=== PATIENT | male | born 1975 | race Caucasian/White ===

== ENCOUNTER 2021-05-30 16:08 | Emergency (ER) | payer SELFPAY ==
[~2021-05-30] VITALS: Ht 182 cm; Wt 100.0 kg
[2021-05-30] MEDS ORDERED: ASPIRIN 81 MG CHEW (CHILDREN'S ASA) PO ONE (16:30)
[2021-05-30] MEDS ORDERED: ANTACID SUSP 30 ML UDC (MYLANTA) PO ONE (16:30)
[2021-05-30] MEDS ORDERED: LIDOCAINE 2% VISCOUS 15 ML UDC PO ONE (16:30)
--- NOTE | 2021-05-30 16:38 | ED Chest Pain ---
General Stated Complaint: HIGH BLOOD PRESSURE, CHEST PAIN Source: patient Exam Limitations: no limitations History of Present Illness Date Seen by Provider: May 30, 2021 Time Seen by Provider: 16:15 Initial Comments To ER from [facility] with c/o burning chest pain x3 days with high blood presure. History of hyperlipidemia, hypertension, NIDDM. No coronary history. Currently he is pain free. No associated nausea sob or diaphoresis. The only thing that improves pain is "taking any pill" such as aspirin or ibuprofen (perhaps related to drinking the water?). Nothing brings about or worsens the pain. Timing/Duration: 2-3 days Severity/Quality: moderate Location: central Radiation: no radiation Activities at Onset: none ASA po CREDIT REPRESENTATIVE: No NTG SL CREDIT REPRESENTATIVE: No Associated Symptoms: shortness of breath Allergies and Home Medications Allergies Coded Allergies: No Known Drug Allergies (Unverified , 05/30/21) Home Medications Pantoprazole Sodium 40 Mg Granpkt.dr, 40 MG PO DAILY Prescribed by: VALENTIN SAL on 05/30/211912 Patient Home Medication List Home Medication List Reviewed: Yes Review of Systems Review of Systems Constitutional: see HPI EENTM: No Symptoms Reported Respiratory: No Symptoms Reported Cardiovascular: See HPI, Chest Pain Gastrointestinal: See HPI Genitourinary: No Symptoms Reported Musculoskeletal: no symptoms reported Skin: no symptoms reported Psychiatric/Neurological: No Symptoms Reported Endocrine: No Symptoms Reported Hematologic/Lymphatic: No Symptoms Reported Physical Exam Vital Signs Vital Signs - First Documented 05/30/21 16:51 Temp 36.8 Pulse 56 Resp 16 B/P (MAP) 164/110 (128) Pulse Ox 99 Capillary Refill : Height, Weight, BMI Height: '" Weight: lbs. oz. kg; BMI Method: General Appearance: No Apparent Distress, WD/WN Neck: Full Range of Motion, Normal Inspection Respiratory: No Accessory Muscle Use, No Respiratory Distress Cardiovascular: Regular Rate, Rhythm, Normal Peripheral Pulses Gastrointestinal: Normal Bowel Sounds, Non Tender, Soft Extremity: Normal Capillary Refill, Normal Inspection Neurologic/Psychiatric: Alert, Oriented x3 Skin: Normal Color, Warm/Dry Progress/Results/Core Measures Results/Orders Lab Results Laboratory Tests Test 05/30/21 16:30 05/30/21 18:40 Range/Units White Blood Count 7.0 4.3-11.0 10^3/uL Red Blood Count 4.81 4.30-5.52 10^6/uL Hemoglobin 14.6 13.3-17.7 g/dL Hematocrit 44 40-54 % Mean Corpuscular Volume 91 80-99 fL Mean Corpuscular Hemoglobin 30 25-34 pg Mean Corpuscular Hemoglobin Concent 34 32-36 g/dL Red Cell Distribution Width 13.4 10.0-14.5 % Platelet Count 204 130-400 10^3/uL Mean Platelet Volume 10.6 9.0-12.2 fL Immature Granulocyte % (Auto) 0 % Neutrophils (%) (Auto) 54 42-75 % Lymphocytes (%) (Auto) 34 12-44 % Monocytes (%) (Auto) 9 0-12 % Eosinophils (%) (Auto) 3 0-10 % Basophils (%) (Auto) 1 0-10 % Neutrophils # (Auto) 3.8 1.8-7.8 10^3/uL Lymphocytes # (Auto) 2.4 1.0-4.0 10^3/uL Monocytes # (Auto) 0.6 0.0-1.0 10^3/uL Eosinophils # (Auto) 0.2 0.0-0.3 10^3/uL Basophils # (Auto) 0.0 0.0-0.1 10^3/uL Immature Granulocyte # (Auto) 0.0 0.0-0.1 10^3/uL Prothrombin Time 13.8 12.2-14.7 SEC INR Comment 1.0 0.8-1.4 Activated Partial Thromboplast Time 31 24-35 SEC Sodium Level 143 135-145 MMOL/L Potassium Level 4.0 3.6-5.0 MMOL/L Chloride Level 105 98-107 MMOL/L Carbon Dioxide Level 26 21-32 MMOL/L Anion Gap 12 5-14 MMOL/L Blood Urea Nitrogen 20 H 7-18 MG/DL Creatinine 1.38 H 0.60-1.30 MG/DL Estimat Glomerular Filtration Rate 56 BUN/Creatinine Ratio 14 Glucose Level 103 70-105 MG/DL Calcium Level 9.5 8.5-10.1 MG/DL Corrected Calcium 8.5-10.1 MG/DL Magnesium Level 2.3 1.6-2.4 MG/DL Total Bilirubin 0.6 0.1-1.0 MG/DL Aspartate Amino Transf (AST/SGOT) 18 5-34 U/L Alanine Aminotransferase (ALT/SGPT) 23 0-55 U/L Alkaline Phosphatase 78 40-136 U/L Myoglobin 38.9 10.0-92.0 NG/ML Troponin I < 0.028 < 0.028 <0.028 NG/ML B-Type Natriuretic Peptide 22.0 <100.0 PG/ML Total Protein 7.7 6.4-8.2 GM/DL Albumin 4.6 H 3.2-4.5 GM/DL Lipase 14 8-78 U/L My Orders Orders - VALENTIN SAL POCKET ASSEMBLER Cbc With Automated Diff (05/30/21 16:25) Magnesium (05/30/21 16:25) Chest 1 View, Ap/Pa Only (05/30/21 16:25) Ekg Tracing (05/30/21 16:25) Comprehensive Metabolic Panel (05/30/21 16:25) Myoglobin Serum (05/30/21 16:25) Protime With Inr (05/30/21 16:25) Partial Thromboplastin Time (05/30/21 16:25) O2 (05/30/21 16:25) Monitor-Rhythm Ecg Trace Only (05/30/21 16:25) Ed Iv/Invasive Line Start (05/30/21 16:25) BNP (05/30/21 16:25) Troponin I (05/30/21 16:25) Antacid Suspension (Mylanta Suspension (05/30/21 16:30) Lidocaine 2% Viscous 15 Ml (Xylocaine Vi (05/30/21 16:30) Aspirin Chewable Tablet (Baby Aspirin Ch (05/30/21 16:30) Lipase (05/30/21 16:25) Troponin I (05/30/21 18:30) Medications Given in ED Current Medications Medications Dose Ordered Sig/Francisco Route Start Time Stop Time Status Last Admin Dose Admin Al Hydrox/Mg Hydrox/Simethicone 30 ml ONCE ONCE PO 05/30/21 16:30 05/30/21 16:31 DC 05/30/21 16:42 30 ML Aspirin 324 mg ONCE ONCE PO 05/30/21 16:30 05/30/21 16:31 DC 05/30/21 16:41 324 MG Lidocaine HCl 15 ml ONCE ONCE PO 05/30/21 16:30 05/30/21 16:31 DC 05/30/21 16:42 15 ML Vital Signs/I&O 05/30/21 05/30/21 16:51 19:27 Temp 36.8 Pulse 56 58 Resp 16 16 B/P (MAP) 164/110 (128) 148/90 Pulse Ox 99 98 Diagnostic Imaging Diagonstic Imaging: Xray Comments NAME: ROXANA LEBRON [facility] REC#: [id number] PT STATUS: REG ER : 1975 PHYSICIAN: VALENTIN SAL POCKET ASSEMBLER ADMIT DATE: 05/30/21/ER Draft Date of Exam:05/30/21 CHEST 1 VIEW, AP/PA ONLY EXAMINATION: Chest, one view. HISTORY: Chest pain. COMPARISON: None available. FINDINGS: The lung volumes are normal. No focal consolidation is seen. No large pleural effusion or pneumothorax is seen. The cardiomediastinal silhouette is prominent. No acute osseous abnormality is seen. IMPRESSION: 1. Cardiomegaly. No overt pulmonary edema. Dictated on workstation # [id number] Dict: 05/30/21 1701 Trans: 05/30/21 1703 [id number] Interpreted by: LORI SEQUEIRA DO Electronically signed by: Departure Communication (Admissions) EKG shows poor R wave progression but no ST segment changes no ectopy and normal intervals with a rate of 61 sinus Impression Primary Impression: Chest pain Disposition: 01 HOME, SELF-CARE Condition: Stable Departure-Patient Inst. Decision time for Depature: 19:13 Referrals: MOISES MACK MD [facility], [facility] RUFINA CEE MD Patient Instructions: Chest Pain Scripts Pantoprazole Sodium (Protonix) 40 Mg 40 MG PO DAILY, #14 TAB Prov: VALENTIN SAL POCKET ASSEMBLER 05/30/21 VALENTIN SAL APRN May 30, 2021 16:38
[2021-05-30 16:46] LABS: BASOPHILS % (AUTO) 1 % (0-10); EOSINOPHILS # (AUTO) 0.2 10^3/uL (0.0-0.3); EOSINOPHILS % (AUTO) 3 % (0-10); HEMATOCRIT 44 % (40-54); HEMOGLOBIN 14.6 g/dL (13.3-17.7); LYMPHOCYTES # (AUTO) 2.4 10^3/uL (1.0-4.0); LYMPHOCYTES % (AUTO) 34 % (12-44); MEAN CORPUSCULAR HEMOGLOBIN 30 pg (25-34); MEAN CORPUSCULAR HGB CONC 34 g/dL (32-36); MEAN CORPUSCULAR VOLUME 91 fL (80-99); MEAN PLATELET VOLUME 10.6 fL (9.0-12.2); MONOCYTES # (AUTO) 0.6 10^3/uL (0.0-1.0); MONOCYTES % (AUTO) 9 % (0-12); NEUTROPHILS # (AUTO) 3.8 10^3/uL (1.8-7.8); NEUTROPHILS % (AUTO) 54 % (42-75); PLATELET COUNT 204 10^3/uL (130-400)
[2021-05-30 16:57] LABS: ALBUMIN 4.6 GM/DL (3.2-4.5); CHLORIDE 105 MMOL/L (98-107); PROTHROMBIN TIME PATIENT 13.8 SEC (12.2-14.7); SODIUM 143 MMOL/L (135-145)
[2021-05-30 16:58] LABS: CALCIUM 9.5 MG/DL (8.5-10.1)
[2021-05-30 16:59] LABS: GLUCOSE 103 MG/DL (70-105)
[2021-05-30 17:00] LABS: TOTAL PROTEIN 7.7 GM/DL (6.4-8.2)
[2021-05-30 17:01] LABS: BILIRUBIN,TOTAL 0.6 MG/DL (0.1-1.0); CARBON DIOXIDE 26 MMOL/L (21-32)
[2021-05-30 17:03] LABS: ALKALINE PHOSPHATASE 78 U/L (40-136); CREATININE SERUM 1.38 MG/DL (0.60-1.30); GFR ESTIMATED 56
--- NOTE | 2021-05-30 17:03 | Diagnostic Imaging Report ---
EXAMINATION: Chest, one view. HISTORY: Chest pain. COMPARISON: None available. FINDINGS: The lung volumes are normal. No focal consolidation is seen. No large pleural effusion or pneumothorax is seen. The cardiomediastinal silhouette is prominent. No acute osseous abnormality is seen. IMPRESSION: 1. Cardiomegaly. No overt pulmonary edema. Dictated by: Dictated on workstation # [id number]
[2021-05-30 17:04] LABS: BUN/CREATININE RATIO 14
[2021-05-30 17:06] LABS: ALANINE AMINOTRANSFERASE 23 U/L (0-55); MAGNESIUM 2.3 MG/DL (1.6-2.4)
[2021-05-30 17:08] LABS: LIPASE 14 U/L (8-78)
[2021-05-30] MEDS ORDERED: PANT40SU PO (19:13)
[2021-05-30 19:27] VITALS: BP 148/90
== END 2021-05-30 19:36 | disposition home or self-care (01) ==
LOC: ER 16:13
DX: R07.9 Chest pain, unspecified (principal); I10 Essential (primary) hypertension; E11.9 Type 2 diabetes mellitus without complications
CPT/HCPCS: 36415; 71045; 80053; 83690; 83735; 83874; 83880; 84484; 85025; 85610; 85730; 93005; 93041

== ENCOUNTER → 2021-08-08 | Outpatient (CLI) | payer OTHER ==
[~2021-08-08] MED LIST: PANT40SU PO
== END ==
LOC: CARD 10:00
PROVIDERS: ATTEND Internal Medicine Cardiovascular Disease
DX: I51.7 Cardiomegaly (principal)
CPT/HCPCS: 93306

== ENCOUNTER → 2021-08-15 | Outpatient (CLI) | payer OTHER ==
[2021-08-15 09:24] VITALS: BP 144/90
--- NOTE | 2021-08-15 18:10 | Cardiology Stress Test Report ---
Stress Test Report Date of Procedure/Referring: Date of Procedure: Aug 15, 2021 PCP Dustin Omer Jr, MD Admitting Physician No,Local Physician Indications: Abnormal ECG Baseline Blood Pressure: Blood Pressure Systolic: 144 Blood Pressure Diastolic: 90 Baseline EKG: Baseline EKG: Sinus bradycardia with first-degree AV block, LAHB and NSIVCD Summary/Conclusion: PROCEDURE: The patient was exercised for a total of 10 minutes and 15 seconds of the standard Alen protocol achieving a maximum MET level of 11.9. The resting heart rate was 44 bpm and the peak heart rate was 159 bpm, which represents 90% of the maximum predicted heart rate. The resting blood pressure was 144/90 mmHg and the peak blood pressure was 197/100 mmHg. This represents a normal heart rate and blood pressure response to exercise. The test was stopped due to fatigue. There was no exercise-induced chest discomfort, arrhythmias, or electrocardiogram changes during the test. The patient exhibited excellent exercise capacity for age. IMPRESSION 1. Normal heart rate and blood pressure response to exercise. 2. There was no chest discomfort, arrhythmias, or electrocardiogram changes during the test. 3. The patient exhibited excellent exercise capacity for age at 10 minutes and 15 seconds of the Alen protocol. 4. This is a normal exercise treadmill test. Certain portions of this document may have been dictated utilizing voice recognition technology. Inherent to this technology, typographical and grammatical errors may exist. As much as I am diligent to identify and correct these mistakes, some errors may remain in the document. DUSTIN OMER JR, MD Aug 15, 2021 18:10
== END ==
LOC: CARD 10:30
PROVIDERS: ATTEND Internal Medicine Cardiovascular Disease
DX: R94.31 Abnormal electrocardiogram [ECG] [EKG] (principal)
CPT/HCPCS: 93017

== ENCOUNTER 2021-10-25 05:33 | Outpatient (RCR) | payer OTHER ==
[~2021-10-25] VITALS: Ht 180.3 cm; Wt 107.9 kg
[~2021-10-25 05:33] MED LIST changes: +AMLO-250 PO; +ATEN25TA PO; +HYDR25TA4 PO; +LOSA100T57 PO; +PANT40TA52 PO; +PRAV20TA3 PO; +SUCR1TAB36 PO
== END 2021-10-25 12:07 | disposition home or self-care (01) ==
LOC: PREOP 05:33
PROVIDERS: ATTEND Surgery
DX: Z01.812 Encounter for preprocedural laboratory examination (principal); Z12.11 Encounter for screening for malignant neoplasm of colon; K21.9 Gastro-esophageal reflux disease without esophagitis; Z20.822 Contact with and (suspected) exposure to COVID-19
CPT/HCPCS: 87635

== ENCOUNTER 2021-10-29 07:56 | Day surgery (SDC) | payer OTHER ==
[2021-10-29] VITALS (7 sets, daily range): BP systolic 118–146; BP diastolic 70–102
[~2021-10-29] VITALS: Ht 180.3 cm; Wt 107.9 kg
[2021-10-29] MEDS ORDERED: LACTATED RINGERS 1,000 ML IV ONE (08:01)
[2021-10-29] MEDS ORDERED: LACTATED RINGERS 1,000 ML IV STA (08:03)
[2021-10-29] MEDS ORDERED: HURRICAINE EXT TUBE (BENZOCAINE) XX PRN (08:15)
--- NOTE | 2021-10-29 08:21 | Progress Note-Pre Operative ---
Pre-Operative Progress Note H&P Reviewed The H&P was reviewed, patient examined and no changes noted. Date Seen by Provider: Oct 29, 2021 Time Seen by Provider: 08:20 Date H&P Reviewed: Oct 29, 2021 Time H&P Reviewed: 08:20 Pre-Operative Diagnosis: gerd, screening colonoscopy OBDULIA CAMEJO DO Oct 29, 2021 08:21
[2021-10-29] MEDS ORDERED: PROPOFOL INJECTION 50 ML IV ONE ×2 (10:14→10:15)
[2021-10-29] MEDS ORDERED: MIDAZOLAM 2 MG/2 ML (VERSED) VIAL ONE (10:14)
--- NOTE | 2021-10-29 11:02 | Progress Note-Post Operative ---
Post-Operative Progess Note Surgeon (s)/Anesthesiologists' Assistant (s) Surgeon OBDULIA CAMEJO DO Anesthesiologists' Assistant: na Pre-Operative Diagnosis gerd, screening colonoscopy Post-Operative Diagnosis reflux esophaagitis, colonoscopy Procedure & Operative Findings Date of Procedure 10/29/21 Procedure Performed/Findings egd c biopsies, colonoscopy Anesthesia Type per packaging materials inspector Estimated Blood Loss Estimated blood loss (mL): none Specimens/Packing Specimens Removed antrum, ge OBDULIA CAMEJO DO Oct 29, 2021 11:01
--- NOTE | 2021-10-29 11:03 | Discharge Inst-Simple/Standard ---
Discharge Inst-Standard Patient Instructions/Follow Up Plan of Care/Instructions/FU: 2 weeks lopez Activity as Tolerated: Yes Discharge Diet: Regular Diet (high fiber) OBDULIA CAMEJO DO Oct 29, 2021 11:02
--- NOTE | 2021-10-29 15:12 | Anesthesia-General Post-Op ---
MAC Patient Condition Mental Status/LOC: Same as Preop Cardiovascular: Satisfactory Nausea/Vomiting: Absent Respiratory: Satisfactory Pain: Controlled Complications: Absent Post Op Complications Complications None Follow Up Care/Instructions Patient Instructions None needed. Anesthesiology Discharge Order Discharge Order Patient is doing well, no complaints, stable vital signs, no apparent adverse anesthesia problems. No complications reported per nursing. JR MARIANO CRNA Oct 29, 2021 15:12
--- NOTE | 2021-10-29 17:45 | OPERATIVE REPORT ---
DATE OF SERVICE: 10/29/2021 PREOPERATIVE DIAGNOSES: Gastroesophageal reflux disease, screening colonoscopy. POSTOPERATIVE DIAGNOSES: Reflux esophagitis, colonoscopy. PROCEDURE: EGD with biopsies, colonoscopy. SURGEON: Mauri Haider DO ANESTHESIA: Per [employer]IAL WORKER. ESTIMATED BLOOD LOSS: None. COMPLICATIONS: None. SPECIMENS: Antrum and GE junction. INDICATIONS: The patient is a 46-year-old male who has been having some reflux symptoms and also needing screening colonoscopy. He understands risks and benefits of procedure and wishes to proceed. Consent was signed in the chart. DESCRIPTION OF PROCEDURE: The patient was taken to the endoscopy suite, placed in left lateral recumbent position. Timeout was performed. Scope was inserted in mouth, down the esophagus, stomach and into the duodenum without difficulty. There were no polyps, masses or ulcerations. Scope was slowly retracted back into the stomach where it was further insufflated. No polyps, masses or ulcerations within the stomach. Scope was retroflexed noting no other pathology. Scope was returned to its normal position. Biopsy of the GE junction was obtained. Scope was slowly retracted back to the distal esophagus. Slight changes of reflux esophagitis suggestive. Biopsies of the GE junction were obtained. Scope was slowly retracted back to completely remove noting no other pathology. Digital rectal exam was performed. There were no palpable polyps, masses or ulcerations. Scope was inserted in the rectum, advanced all the way to cecum with minimal difficulty. In the cecum, there were some food particulate in there that could not be suctioned, it was too large amd appeared to be broccoli, but no visible abnormality present within the cecum. Ileocecal valve normal. Scope was then slowly retracted back. Otherwise, debris in the cecum. The colon prep was adequate. Scope was then slowly retracted back. No polyps, masses or ulcerations within the ascending, transverse, descending and sigmoid colon. Once in the rectum, scope was retroflexed noting no other pathology. Scope was returned to its normal position, slowly withdrawn until completely removed. The patient tolerated procedure well without any complications, taken to recovery room in stable condition. RECOMMENDATIONS: The patient will need repeat colonoscopy in 10 years unless has a change in condition, which should be reevaluated at that time. The patient will follow up on biopsies of the upper GI tract. If he has any issues before that, he should be seen at that time. Continue on current medications. Job ID: [id number] DocumentID: [id number] Dictated Date: 10/29/2021 11:06:30 Publishing Editor Date: 10/29/2021 17:44:42 Dictated By: DO DAKOTA ALEXANDER
== END 2021-10-29 11:49 | disposition home or self-care (01) ==
LOC: ENDO 07:56
PROVIDERS: ATTEND Surgery
DX: Z12.11 Encounter for screening for malignant neoplasm of colon (principal); K21.00 Gastro-esophageal reflux disease with esophagitis, without bleeding; K29.50 Unspecified chronic gastritis without bleeding; I10 Essential (primary) hypertension; E78.00 Pure hypercholesterolemia, unspecified; Z79.899 Other long term (current) drug therapy; Z87.891 Personal history of nicotine dependence

== ENCOUNTER → 2022-09-12 | Outpatient (CLI) | payer OTHER | LOC: CARD 10:31 | PROVIDERS: ATTEND Internal Medicine Cardiovascular Disease | DX: I51.7 Cardiomegaly (principal); I71.21 Aneurysm of the ascending aorta, without rupture | CPT/HCPCS: 93306 ==